=== PATIENT | female | born 1985 | race Caucasian/White ===

== ENCOUNTER 2017-07-11 10:20 | Emergency (ER) | payer OTHER, SELFPAY ==
[2017-07-11 10:32] VITALS: O2SAT 98
[2017-07-11] MEDS ORDERED: TORAdol 30 mg Injection IM ONE (11:05)
[2017-07-11] MEDS ORDERED: DECADRON 10MG INJ. IM ONE (11:05)
--- NOTE | 2017-07-11 11:05 | ERPHSYRPT ---
- History of Present Illness Time Seen by Provider: 07/11/17 10:52 Source: patient Exam Limitations: no limitations Patient Subjective Stated Complaint: PT REPORTS LAST NIGHT SHE WAS LEANING OVER TALKING TO HER CHILD WHEN HER BACK BEGAN HURTING-LOW BACK-RIGHT SIDE HURTS WORSE BUT PAIN IS ALL THE WAY ACROSS-DENIES LIFTING-DENIES INJURY-DENIES NUMBNESS OR TINLGING Triage Nursing Assessment: PT PINK WARM ET DRY-NO BRUISING OR ABRASIONS NOTED- PT ABLE TO BEAR WT ON BILATERAL LEGS-SELF TRANSFERRED TO ED COT-MOVING LOWER EXTREMITIES-RESP EASY ET NONLABORED Physician History: The patient is a 32-year-old female with intermittent chronic low back pain that was worsened last night while bending over. It hurts more on the lower right then on the lower left. She had some old Flexeril that she took without relief. She denies numbness or tingling. Her past medical history significant for back pain and a . Timing/Duration: yesterday Method of Injury: bending Quality: sharp, aching Back Pain Location: lumbar spine Severity of Pain-Max: moderate Severity of Pain-Current: moderate Modifying Factors: Improves With: pain medication Associated Symptoms: denies symptoms Previous symptoms: same symptoms as today Allergies/Adverse Reactions: No Known Drug Allergies Allergy (Verified 07/11/17 10:32) Hx Tetanus, Diphtheria Vaccination/Date Given: Yes Hx Influenza Vaccination/Date Given: No Hx Pneumococcal Vaccination/Date Given: No Immunizations Up to Date: Yes - Review of Systems Constitutional: No Fever, No Chills Eyes: No Symptoms Ears, Nose, & Throat: No Symptoms Respiratory: No Cough, No Dyspnea Cardiac: No Chest Pain, No Edema, No Syncope Abdominal/Gastrointestinal: No Abdominal Pain, No Nausea, No Vomiting, No Diarrhea Genitourinary Symptoms: No Dysuria Musculoskeletal: Back Pain Skin: No Rash Neurological: No Dizziness, No Focal Weakness, No Sensory Changes Psychological: No Symptoms Endocrine: No Symptoms Hematologic/Lymphatic: No Symptoms Immunological/Allergic: No Symptoms All Other Systems: Reviewed and Negative - Past Medical History Pertinent Past Medical History: Yes Neurological History: Migraines Cardiac History: No Pertinent History Respiratory History: No Pertinent History Endocrine Medical History: No Pertinent History Musculoskeletal History: No Pertinent History Other Medical History: pt reports having had migraines in the past - Past Surgical History Past Surgical History: Yes Female Surgical History: Section - Social History Smoking Status: Never smoker Exposure to second hand smoke: No Drug Use: none Patient Lives Alone: No - Female History Hx Last Menstrual Period: 3 WKS AGO - Nursing Vital Signs Nursing Vital Signs: Initial Vital Signs Temperature 98.7 F 07/11/17 10:28 Pulse Rate 84 07/11/17 10:28 Respiratory Rate 20 07/11/17 10:28 Blood Pressure 131/81 07/11/17 10:28 O2 Sat by Pulse Oximetry 98 07/11/17 10:28 Pain Scale Pain Intensity 8 - Physical Exam General Appearance: mild distress Eye Exam: PERRL/EOMI, eyes nml inspection Ears, Nose, Throat Exam: normal ENT inspection Neck Exam: normal inspection, non-tender, supple, full range of motion, No meningismus, No midline tenderness Respiratory Exam: normal breath sounds, lungs clear, No respiratory distress Cardiovascular Exam: regular rate/rhythm, normal heart sounds Gastrointestinal Exam: soft, No tenderness, No mass Pelvic Exam: not done Rectal Exam: not done Back Exam: decreased range of motion, muscle spasm (right lumbar paraspinous muscle) Extremity Exam: normal inspection, normal range of motion, No calf tenderness, No pedal edema Neurologic Exam: alert, oriented x 3, cooperative, proposal review analyst II-XII nml as tested, normal mood/affect, nml station & gait, sensation nml, No motor deficits Skin Exam: normal color, warm, dry, No rash SpO2 Interpretation: normal SpO2: 98 Oxygen Delivery: Room Air - Progress Progress: unchanged Counseled pt/family regarding: diagnosis, need for follow-up - Departure Time of Disposition: 11:09 Departure Disposition: Home Clinical Impression: Back pain Condition: Stable Critical Care Time: No Referrals: PA MENDEZ MD [Primary Care Provider] - Prescriptions: Tizanidine HCl 4 mg PO Q6H PRN PRN #10 tablet PRN Reason: Pain
[2017-07-11] MEDS ORDERED: DECADRON 10MG INJ. ONE (11:27)
[2017-07-11] MEDS ORDERED: TORAdol 30 mg Injection ONE (11:27)
[2017-07-11 11:55] VITALS: BP 124/84; PULSE 76
== END 2017-07-11 12:10 | disposition home or self-care (01) ==
LOC: ED 10:20
DX: M54.9 Dorsalgia, unspecified (principal); M54.5 Low back pain
CPT/HCPCS: 96372; 99284; J1100; J1885